=== PATIENT | male | born 1965 | race African-American/Black ===

== ENCOUNTER 2024-11-06 14:51 | Inpatient (IN) | payer OTHER ==
[2024-11-06] MEDS ORDERED: Ketorolac Tromethamine 30 MG (1 mL) VIAL IVP PRN (15:36)
[2024-11-06] MEDS ORDERED: Ondansetron PF 4 MG/2 ML Vial IVP PRN (15:36)
[2024-11-06] MEDS ORDERED: hydrALAZINE 20 MG/ML VIAL SLOW IVP PRN (15:36)
[2024-11-06 15:47] VITALS: BMI 22.2
[2024-11-06] MEDS ORDERED: Vancomycin 1.25 GM / NS 250 ML VIAL-2-BAG IVPB SCH (18:00)
[2024-11-06 18:51] LABS: #Basophils 0.03 10x3/uL (0.0-0.2); #Eosinophils 0.15 10x3/uL (0.0-0.7); #Monocytes 1.06 10x3/uL (0.11-0.59); #Neutrophils 7.15 10x3/uL (1.40-6.50); %Basophils 0.3 % (0.0-1.0); %Eosinophils 1.4 % (0.0-10.0); %Lymphocytes 20.0 % (21.0-51.0); %Monocytes 10.1 % (0.0-10.0); %Neutrophils 67.9 % (42.0-75.0); Hematocrit 37.6 % (42.0-52.0); Hemoglobin 12.6 g/dL (14.0-18.0); Mean Corpuscular Hemoglobin 31.2 pg (27.0-31.0); Mean Corpuscular Volume 93.1 fL (78.0-98.0); Platelet Count 225 10x3/uL (130-400); Red Blood Cell (RBC) Count 4.04 mill/uL (4.70-6.10); White Blood Cell (WBC) Count 10.53 10x3/uL (4.8-10.8)
[2024-11-06 19:04] LABS: INR-International Normal Ratio 1.0; PTT 32.7 sec (22.9-36.1); Prothrombin Time 13.7 sec (12.0-14.7)
[2024-11-06 19:18] LABS: Anion Gap 14 mmol/L (10-20); BUN (Urea Nitrogen) 6 mg/dL (8.4-25.7); Calc. Creatinine Clearance 117 mL/min (70-130); Calcium 9.3 mg/dL (7.8-10.44); Carbon Dioxide 25 mmol/L (23-31); Chloride 104 mmol/L (98-107); Glucose 122 mg/dL (80-115); Potassium 4.0 mmol/L (3.5-5.1); Sodium 139 mmol/L (136-145)
[2024-11-06] MEDS: Vancomycin 1.25 GM / NS 250 ML VIAL-2-BAG IVPB SCH (21:12)
[2024-11-06] MEDS: Famotidine 20 MG TAB PO SCH (21:12)
[2024-11-06] MEDS: Acetaminophen 500 MG TAB PO PRN (23:33)
[2024-11-07 06:09] LABS: #Basophils 0.04 10x3/uL (0.0-0.2); #Eosinophils 0.27 10x3/uL (0.0-0.7); #Monocytes 0.95 10x3/uL (0.11-0.59); #Neutrophils 4.91 10x3/uL (1.40-6.50); %Basophils 0.5 % (0.0-1.0); %Eosinophils 3.2 % (0.0-10.0); %Lymphocytes 25.7 % (21.0-51.0); %Monocytes 11.4 % (0.0-10.0); %Neutrophils 58.8 % (42.0-75.0); Hematocrit 35.6 % (42.0-52.0); Hemoglobin 12.1 g/dL (14.0-18.0); Mean Corpuscular Hemoglobin 31.4 pg (27.0-31.0); Mean Corpuscular Volume 92.5 fL (78.0-98.0); Platelet Count 222 10x3/uL (130-400); Red Blood Cell (RBC) Count 3.85 mill/uL (4.70-6.10); White Blood Cell (WBC) Count 8.34 10x3/uL (4.8-10.8)
[2024-11-07 06:23] LABS: Vancomycin, Trough 12.9 ug/mL
[2024-11-07 06:25] LABS: ALT (SGPT) 8 U/L (Less than 45); AST (SGOT) 16 U/L (11-34); Albumin 3.5 g/dL (3.1-4.5); Alkaline Phosphatase 81 U/L (40-110); Anion Gap 11 mmol/L (10-20); BUN (Urea Nitrogen) 6 mg/dL (8.4-25.7); Bilirubin, Total 0.6 mg/dL (0.3-1.2); Calc. Creatinine Clearance 95 mL/min (70-130); Calcium 8.9 mg/dL (7.8-10.44); Carbon Dioxide 28 mmol/L (23-31); Chloride 106 mmol/L (98-107); Globulin 2.7 g/dL (2.4-3.5); Glucose 93 mg/dL (80-115); Potassium 3.8 mmol/L (3.5-5.1); Sodium 141 mmol/L (136-145)
[2024-11-07] MEDS ORDERED: Thrombin 5000 UNITS/5 ML VIAL ONE (12:47)
[2024-11-07] MEDS ORDERED: Bacitracin Zinc Ointment 30 gm TUBE ONE (12:47)
[2024-11-07] MEDS ORDERED: PROPOFOL 20 ML ONE (13:09)
[2024-11-07] MEDS ORDERED: Lidocaine 1% PF 5 ML VIAL ONE (13:10)
[2024-11-07] MEDS ORDERED: Ketorolac Tromethamine 30 MG (1 mL) VIAL ONE (13:48)
[2024-11-07] MEDS ORDERED: Glycopyrrolate 0.2 MG/ML 5 ML SYRINGE ONE (13:53)
[2024-11-07] MEDS ORDERED: PHENYLEPHRINE-NS 100 MCG/ML 10 ML SYRINGE ONE (14:12)
[2024-11-07] MEDS ORDERED: Ondansetron PF 4 MG/2 ML Vial ONE (14:36)
[2024-11-08 09:59] LABS: #Basophils Less than 0.03 10x3/uL (0.0-0.2); #Eosinophils 0.05 10x3/uL (0.0-0.7); #Monocytes 0.65 10x3/uL (0.11-0.59); #Neutrophils 7.38 10x3/uL (1.40-6.50); %Basophils 0.2 % (0.0-1.0); %Eosinophils 0.5 % (0.0-10.0); %Lymphocytes 19.4 % (21.0-51.0); %Monocytes 6.5 % (0.0-10.0); %Neutrophils 73.2 % (42.0-75.0); Hematocrit 32.8 % (42.0-52.0); Hemoglobin 11.0 g/dL (14.0-18.0); Mean Corpuscular Hemoglobin 31.3 pg (27.0-31.0); Mean Corpuscular Volume 93.4 fL (78.0-98.0); Platelet Count 230 10x3/uL (130-400); Red Blood Cell (RBC) Count 3.51 mill/uL (4.70-6.10); White Blood Cell (WBC) Count 10.07 10x3/uL (4.8-10.8)
[2024-11-08 10:25] LABS: Anion Gap 12 mmol/L (10-20); BUN (Urea Nitrogen) 8 mg/dL (8.4-25.7); Calc. Creatinine Clearance 115 mL/min (70-130); Calcium 8.7 mg/dL (7.8-10.44); Carbon Dioxide 22 mmol/L (23-31); Chloride 105 mmol/L (98-107); Glucose 154 mg/dL (80-115); Potassium 3.4 mmol/L (3.5-5.1); Sodium 136 mmol/L (136-145)
[2024-11-09 06:32] LABS: #Basophils 0.03 10x3/uL (0.0-0.2); #Eosinophils 0.32 10x3/uL (0.0-0.7); #Monocytes 0.62 10x3/uL (0.11-0.59); #Neutrophils 3.04 10x3/uL (1.40-6.50); %Basophils 0.5 % (0.0-1.0); %Eosinophils 4.9 % (0.0-10.0); %Lymphocytes 38.6 % (21.0-51.0); %Monocytes 9.5 % (0.0-10.0); %Neutrophils 46.2 % (42.0-75.0); Hematocrit 32.9 % (42.0-52.0); Hemoglobin 11.0 g/dL (14.0-18.0); Mean Corpuscular Hemoglobin 31.0 pg (27.0-31.0); Mean Corpuscular Volume 92.7 fL (78.0-98.0); Platelet Count 229 10x3/uL (130-400); Red Blood Cell (RBC) Count 3.55 mill/uL (4.70-6.10); White Blood Cell (WBC) Count 6.56 10x3/uL (4.8-10.8)
[2024-11-09 06:45] LABS: Anion Gap 11 mmol/L (10-20); BUN (Urea Nitrogen) 7 mg/dL (8.4-25.7); Calc. Creatinine Clearance 109 mL/min (70-130); Calcium 8.6 mg/dL (7.8-10.44); Carbon Dioxide 26 mmol/L (23-31); Chloride 108 mmol/L (98-107); Glucose 88 mg/dL (80-115); Potassium 3.5 mmol/L (3.5-5.1); Sodium 141 mmol/L (136-145); Vancomycin, Random 13.8 ug/mL (See Comment)
[2024-11-10 06:45] LABS: #Basophils 0.04 10x3/uL (0.0-0.2); #Eosinophils 0.43 10x3/uL (0.0-0.7); #Monocytes 0.58 10x3/uL (0.11-0.59); #Neutrophils 2.63 10x3/uL (1.40-6.50); %Basophils 0.7 % (0.0-1.0); %Eosinophils 7.2 % (0.0-10.0); %Lymphocytes 38.3 % (21.0-51.0); %Monocytes 9.7 % (0.0-10.0); %Neutrophils 43.8 % (42.0-75.0); Hematocrit 34.4 % (42.0-52.0); Hemoglobin 11.6 g/dL (14.0-18.0); Mean Corpuscular Hemoglobin 30.9 pg (27.0-31.0); Mean Corpuscular Volume 91.5 fL (78.0-98.0); Platelet Count 259 10x3/uL (130-400); Red Blood Cell (RBC) Count 3.76 mill/uL (4.70-6.10); White Blood Cell (WBC) Count 6.00 10x3/uL (4.8-10.8)
[2024-11-10 07:04] LABS: Anion Gap 10 mmol/L (10-20); BUN (Urea Nitrogen) 8 mg/dL (8.4-25.7); Calc. Creatinine Clearance 110 mL/min (70-130); Calcium 8.8 mg/dL (7.8-10.44); Carbon Dioxide 27 mmol/L (23-31); Chloride 104 mmol/L (98-107); Glucose 88 mg/dL (80-115); Potassium 3.1 mmol/L (3.5-5.1); Sodium 138 mmol/L (136-145)
[2024-11-11 06:34] LABS: Anion Gap 12 mmol/L (10-20); BUN (Urea Nitrogen) 7 mg/dL (8.4-25.7); Calc. Creatinine Clearance 99 mL/min (70-130); Calcium 9.0 mg/dL (7.8-10.44); Carbon Dioxide 25 mmol/L (23-31); Chloride 104 mmol/L (98-107); Glucose 86 mg/dL (80-115); Potassium 3.7 mmol/L (3.5-5.1); Sodium 137 mmol/L (136-145)
[2024-11-11 07:04] LABS: Plasma Cells 3 % (0-0); Platelet Adequacy Comment Platelets Normal; Schistocytes SLIGHT = 2-5 cells HPF (0-1); Smudge Cells 5.0 %
[2024-11-11 08:04] LABS: #Basophils 0.05 10x3/uL (0.0-0.2); #Eosinophils 0.57 10x3/uL (0.0-0.7); #Monocytes 0.79 10x3/uL (0.11-0.59); #Neutrophils 3.28 10x3/uL (1.40-6.50); %Basophils 0.7 % (0.0-1.0); %Eosinophils 7.7 % (0.0-10.0); %Lymphocytes 36.4 % (21.0-51.0); %Monocytes 10.7 % (0.0-10.0); %Neutrophils 44.2 % (42.0-75.0); Hematocrit 35.0 % (42.0-52.0); Hemoglobin 11.6 g/dL (14.0-18.0); Mean Corpuscular Hemoglobin 31.0 pg (27.0-31.0); Mean Corpuscular Volume 93.6 fL (78.0-98.0); Platelet Count 298 10x3/uL (130-400); Red Blood Cell (RBC) Count 3.74 mill/uL (4.70-6.10); White Blood Cell (WBC) Count 7.40 10x3/uL (4.8-10.8)
[2024-11-11 21:19] VITALS: BMI 22.2
[2024-11-12 06:01] LABS: #Basophils 0.04 10x3/uL (0.0-0.2); #Eosinophils 0.63 10x3/uL (0.0-0.7); #Monocytes 0.82 10x3/uL (0.11-0.59); #Neutrophils 2.39 10x3/uL (1.40-6.50); %Basophils 0.6 % (0.0-1.0); %Eosinophils 10.0 % (0.0-10.0); %Lymphocytes 38.2 % (21.0-51.0); %Monocytes 13.0 % (0.0-10.0); %Neutrophils 37.9 % (42.0-75.0); Hematocrit 34.2 % (42.0-52.0); Hemoglobin 11.3 g/dL (14.0-18.0); Mean Corpuscular Hemoglobin 30.9 pg (27.0-31.0); Mean Corpuscular Volume 93.4 fL (78.0-98.0); Platelet Count 278 10x3/uL (130-400); Red Blood Cell (RBC) Count 3.66 mill/uL (4.70-6.10); White Blood Cell (WBC) Count 6.31 10x3/uL (4.8-10.8)
[2024-11-12 06:31] LABS: Anion Gap 11 mmol/L (10-20); BUN (Urea Nitrogen) 9 mg/dL (8.4-25.7); Calc. Creatinine Clearance 102 mL/min (70-130); Calcium 8.8 mg/dL (7.8-10.44); Carbon Dioxide 26 mmol/L (23-31); Chloride 105 mmol/L (98-107); Glucose 83 mg/dL (80-115); Potassium 3.7 mmol/L (3.5-5.1); Sodium 138 mmol/L (136-145)
[2024-11-12] MEDS ORDERED: Bacitracin Zinc Ointment 30 gm TUBE ONE (15:08)
[2024-11-12] MEDS ORDERED: fentaNYL PF 100 MCG/2 ML SYRINGE ONE ×2 (16:08→18:33)
[2024-11-12] MEDS ORDERED: Lidocaine 1% PF 5 ML VIAL ONE (16:08)
[2024-11-12] MEDS ORDERED: Ondansetron PF 4 MG/2 ML Vial ONE (16:08)
[2024-11-12] MEDS ORDERED: PROPOFOL 40 ML ONE (16:08)
[2024-11-12] MEDS ORDERED: HYDROmorphone 0.5 MG/0.5 ML SYR SLOW IVP PRN (16:12)
[2024-11-12] MEDS ORDERED: PHENYLEPHRINE-NS 100 MCG/ML 10 ML SYRINGE ONE (17:19)
[2024-11-12] MEDS ORDERED: Glycopyrrolate 0.2 MG/ML 5 ML SYRINGE ONE (17:19)
[2024-11-12] MEDS ORDERED: Ketorolac Tromethamine 30 MG (1 mL) VIAL ONE (18:36)
[2024-11-12] MEDS ORDERED: HYDROmorphone 0.5 MG/0.5 ML SYRINGE ONE (18:36)
[2024-11-12] MEDS ORDERED: Meperidine HCl/PF 25 MG (1 mL) VIAL IM PRN (18:47)
[2024-11-13 05:32] LABS: #Basophils Less than 0.03 10x3/uL (0.0-0.2); #Eosinophils Less than 0.03 10x3/uL (0.0-0.7); #Monocytes 0.22 10x3/uL (0.11-0.59); #Neutrophils 6.07 10x3/uL (1.40-6.50); %Basophils 0.1 % (0.0-1.0); %Eosinophils 0.3 % (0.0-10.0); %Lymphocytes 14.4 % (21.0-51.0); %Monocytes 3.0 % (0.0-10.0); %Neutrophils 81.8 % (42.0-75.0); Hematocrit 35.8 % (42.0-52.0); Hemoglobin 11.8 g/dL (14.0-18.0); Mean Corpuscular Hemoglobin 30.9 pg (27.0-31.0); Mean Corpuscular Volume 93.7 fL (78.0-98.0); Platelet Count 308 10x3/uL (130-400); Red Blood Cell (RBC) Count 3.82 mill/uL (4.70-6.10); White Blood Cell (WBC) Count 7.42 10x3/uL (4.8-10.8)
[2024-11-13 05:47] LABS: Anion Gap 12 mmol/L (10-20); BUN (Urea Nitrogen) 9 mg/dL (8.4-25.7); Calc. Creatinine Clearance 98 mL/min (70-130); Calcium 9.1 mg/dL (7.8-10.44); Carbon Dioxide 24 mmol/L (23-31); Chloride 103 mmol/L (98-107); Glucose 149 mg/dL (80-115); Potassium 3.9 mmol/L (3.5-5.1); Sodium 135 mmol/L (136-145)
[2024-11-13] MEDS: Ketorolac Tromethamine 30 MG (1 mL) VIAL IVP PRN (11:32)
[2024-11-13 17:38] VITALS: BP 135/77; TEMP 98.3
[2024-11-13] MEDS ORDERED: Amoxicillin/Potassium Clav 875 MG TAB PO SCH (21:00)
== END 2024-11-13 18:47 | DRG 506 ==
LOC: T4-A 14:51 → EEVIPCON 14:51
PROVIDERS: ADMIT Family Medicine; ATTEND Hospitalist
PROC: 3E03329 Introduction of Other Anti-infective into Peripheral Vein, Percutaneous Approach (ICD-10-PCS; 2024-11-06)
PROC: 3E033XZ Introduction of Vasopressor into Peripheral Vein, Percutaneous Approach (ICD-10-PCS; 2024-11-06)
PROC: 0R9X0ZZ Drainage of Left Finger Phalangeal Joint, Open Approach (ICD-10-PCS; principal; 2024-11-08)
PROC: 0LB80ZZ Excision of Left Hand Tendon, Open Approach (ICD-10-PCS; 2024-11-08)
PROC: 0L9 Tendons, Drainage (ICD-10-PCS; 2024-11-08)
PROC: 0RBX0ZZ Excision of Left Finger Phalangeal Joint, Open Approach (ICD-10-PCS; 2024-11-12)
DX: M00.242 Other streptococcal arthritis, left hand (principal); L02.512 Cutaneous abscess of left hand; M00.842 Arthritis due to other bacteria, left hand; M65.042 Abscess of tendon sheath, left hand; B95.4 Other streptococcus as the cause of diseases classified elsewhere; L03.012 Cellulitis of left finger; I10 Essential (primary) hypertension; F41.9 Anxiety disorder, unspecified; F32.A Depression, unspecified; E87.6 Hypokalemia; E78.5 Hyperlipidemia, unspecified; Z98.890 Other specified postprocedural states; Z79.899 Other long term (current) drug therapy; Y04.1XXA Assault by human bite, initial encounter; Z56.0 Unemployment, unspecified; Z87.891 Personal history of nicotine dependence; B96.89 Other specified bacterial agents as the cause of diseases classified elsewhere
CPT/HCPCS: 36415; 36416; 80048; 80053; 80202; 85025; 85610; 85730; 86141; 87070; 87077; 87081; 87186; 87205; 97139; J0665; J1100; J1171; J1885; J2543; J2704; J3373; J7030; J7050